=== PATIENT | male | born 1975 | race African-American/Black ===

== ENCOUNTER 2019-12-28 06:55 | Inpatient (IN) | payer MEDICAID ==
[~2019-12-28] VITALS: Ht 182.9 cm; Wt 108.4 kg
--- NOTE | 2019-12-28 | NUR ---
pm care given pt b/p redone and was 178/68 ,pt resting in no distress at this time
--- NOTE | 2019-12-28 07:30 | NUR ---
Patient to ER bed 3 to gown for evaluation. Side rails .
[2019-12-28 07:33] VITALS: BP_SYST 178
--- NOTE | 2019-12-28 07:35 | NUR ---
EKG done had given to
--- NOTE | 2019-12-28 07:40 | NUR ---
pt arrives from home w/ c/o chest burning sensation. Pt states that he has had a cough and fever. child monitor placed. Will continue to monitor
--- NOTE | 2019-12-28 07:45 | NUR ---
ER at bedside examining patient.
--- NOTE | 2019-12-28 07:50 | NUR ---
flu swab collected and sent to the lab
[2019-12-28] MEDS ORDERED: cloNIDine HCL 0.1 MG TABLET PO ONE (08:00)
[2019-12-28 08:19] LABS: BASOPHILS % (AUTO) 0.5 % (0.0-2.0); EOSINOPHILS # (AUTO) 0.1 K/uL (0.0-0.4); EOSINOPHILS % (AUTO) 0.9 % (0.0-4.0); HEMATOCRIT 42.8 % (36-54); HEMOGLOBIN 14.4 g/dL (14.0-18.0); LYMPHOCYTES # (AUTO) 1.4 K/uL (1.0-5.5); LYMPHOCYTES % (AUTO) 17.3 % (20.5-51.5); MEAN CORPUSCULAR HEMOGLOBIN 28 pg (27-31); MEAN CORPUSCULAR HGB CONC 34 % (32-36); MEAN CORPUSCULAR VOLUME 85 fL (79.0-98.0); MONOCYTES # (AUTO) 0.9 K/uL (0.0-1.0); MONOCYTES % (AUTO) 10.8 % (1.7-9.3); NEUTROPHILS # (AUTO) 5.7 K/uL (1.8-7.7); NEUTROPHILS % (AUTO) 70.5 % (40.0-70.0); PLATELET COUNT (AUTO) 232 K/uL (130-430); RED BLOOD CELL COUNT(AUTO) 5.06 MIL/uL (4.2-6.2); RED CELL DISTRIBUTION WIDTH 14.7 % (9.0-15.0); WHITE BLOOD COUNT (AUTO) 8.1 K/uL (4.8-10.8)
[2019-12-28 08:23] LABS: CALCIUM 8.7 mg/dL (8.4-11.0); CREATININE 1.23 mg/dL (0.55-1.30); POTASSIUM 3.7 mmol/L (3.5-5.1)
[2019-12-28 08:33] LABS: ALBUMIN 3.5 g/dL (3.4-4.8); TOTAL BILIRUBIN 1.4 mg/dL (0.0-1.0)
[2019-12-28] MEDS ORDERED: ASPIRIN 81 MG TAB.CHEW PO ONE (08:45)
--- NOTE | 2019-12-28 08:50 | NUR ---
# 118 gauge angiocath placed to RAC. Use of asceptic technique. Opsite placed over site. Blood return noted. Blood for lab drawn from site. Flushed with 10 cc of normal saline. No evidence of infiltration noted. Patient tolerated well. Addendum: 12/28/19 at 0857 by ALEXY 18g [facility]
[2019-12-28] MEDS ORDERED: VALS160T2 PO (09:17)
--- NOTE | 2019-12-28 09:17 | NUR ---
Medication reconciliation completed with information provided by the pt. Any prior medication reconciliation on file was reviewed and corrected.
[2019-12-28] MEDS ORDERED: ACETAMINOPHEN 500 MG TABLET PO ONE (09:30)
[2019-12-28] MEDS ORDERED: NITROGLYCERIN 1 INCH (GM) OINT. TP ONE (09:30)
--- NOTE | 2019-12-28 10:28 | NUR ---
Medicated the pt w/ Hydralizine 10mg IVP per MD order.
[2019-12-28] MEDS ORDERED: hydrALAZINE HCL 20 MG/ML VIAL IVP ONE (10:30)
--- NOTE | 2019-12-28 10:38 | NUR ---
ADMISSION NOTE Received patient from ER via nilda, received report from LILY ACOSTA. Patient admitted with diagnosis of CHEST PAIN. Patient oriented to hospital routine, call light, toileting and safety-patient verbalized understanding.
--- NOTE | 2019-12-28 10:39 | NUR ---
CONSULTATION PAGED REASON FOR CONSULTATION:CHEST PAIN POSITIVE TROPONIN WAS CONSULT CALLED?Y PERSON WHO WAS NOTIFIED:DAVID CONSULTING PHYSICIAN:SNOW GOETZ VICE PRESIDENT TAX SPECIALTY:CARDIO VICE PRESIDENT TAX PHONE NUMBER:[phone] ORDERING PHYSICIAN:CLARE BALBUENA
--- NOTE | 2019-12-28 10:39 | NUR ---
cardiac consult called: for Dr. Bedoya, regarding chest pain and positive troponin, ordered by Dr. Newton, spoke with Tejal.
[2019-12-28 10:44] VITALS: BP_SYST 143
--- NOTE | 2019-12-28 10:45 | NUR ---
Patient will be admitted to care of Dr. Newton. Admitted to tele unit. Will go to room 109-a. Belongings list completed. Complete and up to date summary report printed. SBAR report to be given at bedside with opportunity for questions. Bedside report given to Erik ACOSTA. IV is on the RAC 18g patent and infsuing well.
[2019-12-28] MEDS ORDERED: ENALAPRILAT DIHYDRATE 1.25 MG/ML VIAL IVP PRN (11:45)
--- NOTE | 2019-12-28 11:55 | NUR ---
RN rounds patient resting in bed, denies any pain, no signs of distress, continuing to monitor the patient, his family is at beside, bed in lowest position, two side rails up, call light is within reach, fall and aspiration precautions in place.
--- NOTE | 2019-12-28 12:49 | NUR ---
Called Cardiopulmonary regarding ECHO order, tech will be here shortly.
--- NOTE | 2019-12-28 13:00 | NUR ---
RN rounds patient resting in bed, awake, denies any pain, no signs of distress, he is eating lunch, his family is at bedside, patient bed in lowest position, two side rails up, call light within reach, fall and aspiration precautions in place, continuing to monitor.
--- NOTE | 2019-12-28 14:15 | NUR ---
RN rounds patient resting in bed, awake, denies any pain, no signs of distress, provided with water per his request, his family is at bedside, answered patient and family questions, patient bed in lowest position, two side rails up, call light within reach, fall and aspiration precautions in place, continuing to monitor.
[2019-12-28 15:19] VITALS: BP_SYST 146
--- NOTE | 2019-12-28 15:20 | NUR ---
RN rounds patient resting in bed, awake, denies pain, his family is at bedside, continuing to monitor, bed in lowest position, two side rails up, call light within reach, fall and aspiration precautions in place.
[2019-12-28] MEDS: guaiFENesin/DEXTROMETHORPHAN 10 ML UDC PO PRN (16:06)
--- NOTE | 2019-12-28 16:08 | NUR ---
RN rounds/Medication patient resting in bed, awake, denies pain, educated him on PRN cough medication uses and potential side effects, he verbalized understanding and tolerated well, no other needs at this time, continuing to monitor, bed in lowest position, two side rails up, call light within reach, fall and aspiration precautions in place.
--- NOTE | 2019-12-28 18:39 | NUR ---
Dr. Myles rounds updates given on the patient, Dr. Myles assessed the patient at bedside and answered his questions.
--- NOTE | 2019-12-28 18:40 | NUR ---
Closing note patient resting in bed, awake, denies pain, his family is at bedside, all needs met, will endorse report to NOC shift nurse, bed in lowest position, two side rails up, call light within reach, fall and aspiration precautions in place.
[2019-12-28 19:00] VITALS: BP_SYST 188
[2019-12-28 20:00] VITALS: BP_SYST 187
--- NOTE | 2019-12-28 20:00 | NUR ---
received pt in bed family at bedside ,v/s and assessment done b/p very high 189/110 medication given as ordered ,md notified of b/p status,pt told to calm down as family visiting and pt got a little excited,
[2019-12-28 20:17] LABS: CREATININE 1.34 mg/dL (0.55-1.30); POTASSIUM 3.9 mmol/L (3.5-5.1)
[2019-12-28] MEDS: cloNIDine HCL 0.1 MG TABLET PO PRN (20:44)
[2019-12-28] MEDS ORDERED: CARVEDILOL 6.25 MG TABLET (COREG) PO SCH (21:00)
[2019-12-29] VITALS: BP_SYST 154
--- NOTE | 2019-12-29 | NUR ---
family left ,pt appears to be less anxious at this time appear to be less anxious at this time
[2019-12-29] MEDS: guaiFENesin/DEXTROMETHORPHAN 10 ML UDC PO PRN ×3 (00:13→23:27)
[2019-12-29] MEDS: hydrALAZINE HCL 20 MG/ML VIAL IVP PRN ×2 (00:24→13:38)
[2019-12-29 04:00] VITALS: BP_SYST 150
--- NOTE | 2019-12-29 04:00 | NUR ---
pt resting in no distress .am care given made made comfortable
--- NOTE | 2019-12-29 05:44 | NUR ---
pt has a temp 102 will call and awaits his orders,b/p 150/90
[2019-12-29] MEDS ORDERED: HYDROCHLOROTHIAZIDE 25 MG TABLET (HCTZ) PO SCH (09:00)
[2019-12-29] MEDS ORDERED: ACETAMINOPHEN 325 MG TABLET ONE (09:11)
[2019-12-29 11:35] LABS: CALCIUM 8.7 mg/dL (8.4-11.0); CREATININE 1.25 mg/dL (0.55-1.30); POTASSIUM 3.8 mmol/L (3.5-5.1)
[2019-12-29 12:00] VITALS: BP_SYST 161
--- NOTE | 2019-12-29 12:00 | NUR ---
rounds pt eating lunch and mario well. no dizziness noted. call light within reached.
--- NOTE | 2019-12-29 14:00 | NUR ---
rounds awaiting for pt to void beofre infusing abx., no sob noted. call light withn reached.
[2019-12-29] MEDS ORDERED: FUROSEMIDE 40 MG TABLET PO ONE (14:15)
[2019-12-29 16:00] VITALS: BP_SYST 166
--- NOTE | 2019-12-29 16:53 | NUR ---
rounds urine was obtained and sent to the lab, abx was infused. no osb noted. ambulates to the br with min assists and mario well. resting comfortably.
[2019-12-29] MEDS: cloNIDine HCL 0.1 MG TABLET PO PRN (17:12)
[2019-12-29] MEDS: cefTRIAXone 1 GM IVPB PREMIX 50 ML IV SCH (17:14)
[2019-12-29 17:20] LABS: BARBITURATE, URINE NEGATIVE (NEG <=200); BENZODIAZEPINE, URINE NEGATIVE (NEG <=150); CANNABINOID, URINE NEGATIVE (NEG <=50); COCAINE, URINE NEGATIVE (NEG <=150); METHAMPHETAMINES SCREEN,URINE NEGATIVE (NEG <=500); OPIATE, URINE NEGATIVE (NEG <=100); PHENCYCLIDINE SCREEN,URINE NEGATIVE (NEG <=25); UR TRICYCLIC ANTIDEPRESSANTS NEGATIVE (NEG <=300); URINE AMPHETAMINE NEGATIVE (NEG <=500); URINE METHADONE NEGATIVE (NEG <=200); URINE OXYCODONE SCREEN NEGATIVE (NEG <=100); URINE PROPOXYPHENE SCREEN NEGATIVE (NEG <=300)
[2019-12-29 17:29] LABS: BILIRUBIN,URINE NEGATIVE (NEGATIVE); BLOOD, URINE NEGATIVE (NEGATIVE); CLARITY/URINE CLEAR (CLEAR); GLUCOSE,URINE NEGATIVE (NEGATIVE); KETONES,URINE NEGATIVE (NEGATIVE); LEUKOCYTE ESTERASE ,URINE NEGATIVE (NEGATIVE); NITRITE, URINE NEGATIVE (NEGATIVE); PROTEIN URINE NEGATIVE (NEGATIVE); UROBILINOGEN,URINE 0.2 (0.2-1.0)
[2019-12-29 17:48] LABS: COLOR,URINE STRAW (YELLOW)
--- NOTE | 2019-12-29 18:30 | NUR ---
closing notes denies pain. no sob noted. bed to the lowest position and side rails up and locked. call light within reached.
[2019-12-29 20:00] VITALS: BP_SYST 156
--- NOTE | 2019-12-29 20:00 | NUR ---
RECEIVED PT IN BED WITH LARGE GROUP OF FAMILY MEMBERS AT BEDSIDE,V/S AND ASSESSMENT DONE B/P 156/107 ,PT IN NO DISTRESS AT THIS TIME .FAMILY MEMBERS ADVISE TO KEEP PT STIMULATION TO A MINIMUM HIS B/P WAS HIGH,MEDICATION GIVEN FOR SAME .FAMILY MEMBERS AND REQUESTING TO SPEAK TO AND TO SEE DR MARI SINCE PREVIOUS SHIFT.CHARGE NURSE AND ARCHITECTURAL ASSOCIATE NOTIFIED OF THERE REQUEST, ARCHITECTURAL ASSOCIATE SEEN PT AND FAMILY.
[2019-12-29] MEDS: CARVEDILOL 6.25 MG TABLET (COREG) PO SCH (20:21)
[2019-12-29] MEDS: SPIRONOLACTONE 25 MG TABLET (ALDACTONE) PO SCH (20:22)
[2019-12-30] VITALS: BP_SYST 166
[2019-12-30 04:00] VITALS: BP_SYST 128
[2019-12-30] MEDS: cloNIDine HCL 0.1 MG TABLET PO PRN (06:01)
[2019-12-30] MEDS: guaiFENesin/DEXTROMETHORPHAN 10 ML UDC PO PRN (06:25)
[2019-12-30 07:36] LABS: ALBUMIN 3.6 g/dL (3.4-4.8); CALCIUM 9.6 mg/dL (8.4-11.0); CREATININE 1.38 mg/dL (0.55-1.30)
[2019-12-30 07:47] LABS: THYROID STIMULATING HORMONE 3.5 uIu/mL (0.36-3.74)
[2019-12-30 08:00] VITALS: BP_SYST 162
--- NOTE | 2019-12-30 08:00 | NUR ---
initial notes rec patient awake alert with family at bedside. resp easy and unlabored. no sob noted. bed to the lowest position and side rails up and locked. call light within reached. denies pain or headache.
[2019-12-30] MEDS ORDERED: FUROSEMIDE 40 MG TABLET PO SCH (09:00)
[2019-12-30] MEDS ORDERED: SPIR25TA PO (09:08)
[2019-12-30] MEDS ORDERED: FURO-149 PO (09:08)
[2019-12-30] MEDS ORDERED: LOSA50TA3 PO (09:08)
[2019-12-30] MEDS ORDERED: COR6.25 PO (09:08)
--- NOTE | 2019-12-30 10:00 | NUR ---
rounds seen by dr berman and dr vicente. pt will be d/c today. no sob noted.
[2019-12-30] MEDS: CARVEDILOL 6.25 MG TABLET (COREG) PO SCH (10:10)
[2019-12-30] MEDS: LOSARTAN POTASSIUM 50 MG TABLET (COZAAR) PO SCH ×2 (10:11→10:13)
[2019-12-30] MEDS: SPIRONOLACTONE 25 MG TABLET (ALDACTONE) PO SCH (10:19)
[2019-12-30] MEDS: cefTRIAXone 1 GM IVPB PREMIX 50 ML IV SCH (10:19)
[2019-12-30 12:42] VITALS: BP_SYST 150
--- NOTE | 2019-12-30 13:22 | NUR ---
Nutrition Education RD was consulted by pt's primary RN regarding pt's request for nutrition education (low-salt, heart-healthy) prior to D/C. RD provided handouts to pt's RN. Please refer to interdisciplinary teaching record for details.
--- NOTE | 2019-12-30 13:25 | NUR ---
closing notes exit care rendered to the patient. ivl and id band was removed. instructed re appt to see pmdElroy grigsby the diving instructor provided a heart healthy diet instructions for the patient. pt was instructed as well to comply with his medications. was escorted outside. no sob noted. patient is stable.
== END 2019-12-30 13:25 | disposition home or self-care (01) | DRG 190 ==
LOC: SED 06:55 → STU 10:06
PROVIDERS: ADMIT Internal Medicine Hospice and Palliative Medicine; ATTEND Internal Medicine Hospice and Palliative Medicine
DX: I21.A1 Myocardial infarction type 2 (principal); I50.21 Acute systolic (congestive) heart failure; I42.9 Cardiomyopathy, unspecified; E87.1 Hypo-osmolality and hyponatremia; I16.1 Hypertensive emergency; I11.0 Hypertensive heart disease with heart failure; B34.9 Viral infection, unspecified; Z91.14 Patient's other noncompliance with medication regimen; Z91.19 Patient's noncompliance with other medical treatment and regimen; Z79.899 Other long term (current) drug therapy
CPT/HCPCS: 36415; 71045; 80048; 80053; 80061; 80307; 81003; 83605; 83880; 84443-TC; 84484; 85025; 86710; 87040-TC; 87086; 93005; 93306; 99291; G0378; J0360; J0696

== ENCOUNTER 2020-05-31 21:01 | Emergency (ER) | payer SELFPAY ==
[~2020-05-31] VITALS: Ht 182.9 cm; Wt 103.4 kg
[~2020-05-31 21:01] MED LIST: COR6.25 PO; FURO-149 PO; LOSA50TA3 PO; SPIR25TA PO
[2020-05-31 21:45] VITALS: BP_SYST 234
--- NOTE | 2020-05-31 21:50 | NUR ---
Pt c/o to desktop publishing associate of congestion,pt stated to desktop publishing associate no chest pain only congestion, during triage pt states he feels chest discomfort/congestion during the last 4 days, pt insist it is not chest pain, Dr Giang notified ,EKG started, pt BP elevated , pt ambulatory, respirations even and unlabored, pt denies cough or congestion, skin pink and warm, will cont to monitor
--- NOTE | 2020-05-31 21:51 | NUR ---
Awaiting for bed availability , Dr Giang notified of pt's high blood pressure, requested a blood pressure medication but Dr Giang refused to give BP medication at this time since patient in waiting room,charge nurse awared,order received for aspirin PO, will cont to monitor .
--- NOTE | 2020-05-31 21:53 | NUR ---
Dr Giang assessing patient in the triage room
--- NOTE | 2020-05-31 21:54 | NUR ---
EKG given to Dr Giang, per Dr Giang will order labs.
--- NOTE | 2020-05-31 21:55 | NUR ---
Pt was taken to Radiology
[2020-05-31] MEDS ORDERED: ASPIRIN 325 MG TABLET PO ONE (22:00)
[2020-05-31 22:33] LABS: BASOPHILS # (AUTO) 0.1 K/uL (0.0-0.2); BASOPHILS % (AUTO) 0.6 % (0.0-2.0); EOSINOPHILS # (AUTO) 0.3 K/uL (0.0-0.4); EOSINOPHILS % (AUTO) 3.4 % (0.0-4.0); HEMATOCRIT 44.6 % (36-54); HEMOGLOBIN 14.7 g/dL (14.0-18.0); LYMPHOCYTES # (AUTO) 3.8 K/uL (1.0-5.5); LYMPHOCYTES % (AUTO) 39.1 % (20.5-51.5); MEAN CORPUSCULAR HEMOGLOBIN 29 pg (27-31); MEAN CORPUSCULAR HGB CONC 33 % (32-36); MEAN CORPUSCULAR VOLUME 87 fL (79.0-98.0); MONOCYTES # (AUTO) 0.7 K/uL (0.0-1.0); MONOCYTES % (AUTO) 6.7 % (1.7-9.3); NEUTROPHILS # (AUTO) 4.9 K/uL (1.8-7.7); NEUTROPHILS % (AUTO) 50.2 % (40.0-70.0); PLATELET COUNT (AUTO) 281 K/uL (130-430); RED BLOOD CELL COUNT(AUTO) 5.11 MIL/uL (4.2-6.2); RED CELL DISTRIBUTION WIDTH 13.6 % (9.0-15.0); WHITE BLOOD COUNT (AUTO) 9.7 K/uL (4.8-10.8)
[2020-05-31 22:50] LABS: CALCIUM 9.4 mg/dL (8.4-11.0); CREATININE 1.41 mg/dL (0.55-1.30); POTASSIUM 3.7 mmol/L (3.5-5.1)
[2020-05-31 22:56] LABS: ALBUMIN 3.7 g/dL (3.4-4.8); TOTAL BILIRUBIN 0.2 mg/dL (0.0-1.0)
[2020-05-31 23:06] LABS: PROTHROMBIN TIME 9.9 SECS (9.5-12.5)
--- NOTE | 2020-06-01 00:50 | NUR ---
PT COMPLAINS OF CHEST DISCOMFORT FOR 3 DAYS. PT STATES IT WOULD COME AND GO. PT CAME IN TODAY BECAUSE HE WANTED TO GET IT CHECKED. PT DENIES HEADACHE, BLURRY VISION, DIZZINESS.
--- NOTE | 2020-06-01 00:55 | NUR ---
ER Dr. HUMPHREYS at bedside examining patient.
[2020-06-01] MEDS ORDERED: NITROGLYCERIN 0.4 MG TAB.SUBL SL ONE (01:15)
--- NOTE | 2020-06-01 01:16 | NUR ---
Pt has been given 1st dose of Nitro for CP of 02/25. BP: 214/143 HR: 84
--- NOTE | 2020-06-01 01:21 | NUR ---
Pt has been given 2nd dose of Nitro for chest pain 12/28. BP: 198/131 HR:89
--- NOTE | 2020-06-01 01:26 | NUR ---
Pt has been given 3rd dose of Nitro for CP of 11/27. BP: 186/127 HR: 97%
--- NOTE | 2020-06-01 02:30 | NUR ---
Pt is resting in bed, no chest pain at this time. Will continue to monitor.
--- NOTE | 2020-06-01 03:52 | NUR ---
Pt is sitting in chair, no acute distress noted at this time. Will continue to monitor.
[2020-06-01] MEDS ORDERED: LOSA100T3 PO (04:28)
--- NOTE | 2020-06-01 04:29 | NUR ---
Patient will be admitted to care of A Paliwal. Admitted to telemetry unit. Will go to room once a room is available. Belongings list completed. Complete and up to date summary report printed. SBAR report to be given at bedside with opportunity for questions.
--- NOTE | 2020-06-01 04:29 | NUR ---
Medication reconciliation completed with information provided by patient. Any prior medication reconciliation on file was reviewed and corrected.
--- NOTE | 2020-06-01 07:24 | NUR ---
Assumed care of pt. Pt sleeping, no acute distress. Breathing even, unlabored.
--- NOTE | 2020-06-01 08:56 | NUR ---
Spoke with Garry Salinas regarding pt elevated BP, orders recieved.
[2020-06-01] MEDS ORDERED: LOSARTAN POTASSIUM 50 MG TABLET (COZAAR) PO ONE (09:00)
[2020-06-01] MEDS ORDERED: cloNIDine HCL 0.1 MG TABLET PO PRN (09:00)
[2020-06-01] MEDS ORDERED: hydrALAZINE HCL 20 MG/ML VIAL IVP ONE (09:15)
[2020-06-01] MEDS ORDERED: cloNIDine HCL 0.1 MG TABLET ONE (09:19)
--- NOTE | 2020-06-01 10:41 | NUR ---
Dr. Maurice Salinas at bedside for evaluation
[2020-06-01] MEDS ORDERED: CARVEDILOL 6.25 MG TABLET (COREG) ONE (11:06)
[2020-06-01] MEDS ORDERED: CARVEDILOL 25 MG TABLET (COREG) PO ONE (11:30)
--- NOTE | 2020-06-01 15:26 | NUR ---
Spoke with Dr. Maurice Salinas regarding pt BP 159/125. Orders recieved. Give amlodipine 5mg PO now and discharge home with RX to follow up with PCP and Dr. Maurice Salinas in 2 weeks.
[2020-06-01] MEDS ORDERED: amLODIPine BESYLATE 5 MG TABLET PO ONE (15:30)
[2020-06-01 15:37] VITALS: BP_SYST 159
[2020-06-01] MEDS ORDERED: AMLO5TAB4 PO (15:43)
[2020-06-01] MEDS ORDERED: amLODIPine BESYLATE 5 MG TABLET ONE (15:43)
[2020-06-01] MEDS ORDERED: CARV25TA55 PO (15:43)
--- NOTE | 2020-06-01 16:30 | NUR ---
Patient given written and verbal discharge instructions and verbalizes understanding. ER MD discussed with patient the results and treatment provided. Patient in stable condition. ID arm band removed. IV catheter removed intact and dressing applied, no active bleeding. Rx of NORVASC, AMLODIPINE phoned in to [facility] pharmacy by Maurice Salinas given. Patient educated on pain management and to follow up with PMD. Pain Scale 0/10. Opportunity for questions provided and answered. Medication side effect fact sheet provided. Pt will follow up with PCP and Dr. Maurice Salinas for HTN
[2020-06-01 16:31] VITALS: BP_SYST 168
[2020-06-01] MEDS ORDERED: CARVEDILOL 25 MG TABLET (COREG) PO SCH (21:00)
== END 2020-06-01 04:29 | disposition other institution (70) ==
LOC: SED 21:01 → UNDOADMIN 06-01 03:50 → STU 06-01 03:50 → SED 06-01 04:29 → STU 06-01 16:31
DX: R07.9 Chest pain, unspecified (principal); I10 Essential (primary) hypertension; N18.9 Chronic kidney disease, unspecified; R73.9 Hyperglycemia, unspecified
CPT/HCPCS: 36415; 71045; 80053; 83880; 84484; 85025; 85610; 85730; 93005 ×2; 96374; 99285; J0360; 85379

== ENCOUNTER 2021-04-18 11:04 | Emergency (ER) | payer SELFPAY ==
[~2021-04-18] VITALS: Ht 182.9 cm; Wt 101.6 kg
[~2021-04-18 11:04] MED LIST changes: +AMLO5TAB4 PO; +CARV25TA55 PO; -COR6.25 PO; -FURO-149 PO; -LOSA50TA3 PO; -SPIR25TA PO
[2021-04-18 11:22] VITALS: BP_SYST 214
[2021-04-18 12:08] LABS: BASOPHILS # (AUTO) 0.1 K/uL (0.0-0.2); BASOPHILS % (AUTO) 0.7 % (0.0-2.0); EOSINOPHILS # (AUTO) 0.1 K/uL (0.0-0.4); EOSINOPHILS % (AUTO) 0.7 % (0.0-4.0); HEMOGLOBIN 15.1 g/dL (14.0-18.0); LYMPHOCYTES # (AUTO) 1.9 K/uL (1.0-5.5); LYMPHOCYTES % (AUTO) 17.6 % (20.5-51.5); MEAN CORPUSCULAR HEMOGLOBIN 28 pg (27-31); MEAN CORPUSCULAR HGB CONC 33 % (32-36); MEAN CORPUSCULAR VOLUME 84 fL (79.0-98.0); MONOCYTES # (AUTO) 1.1 K/uL (0.0-1.0); NEUTROPHILS # (AUTO) 7.6 K/uL (1.8-7.7); PLATELET COUNT (AUTO) 291 K/uL (130-430); RED CELL DISTRIBUTION WIDTH 15.2 % (9.0-15.0); WHITE BLOOD COUNT (AUTO) 10.7 K/uL (4.8-10.8)
[2021-04-18 12:28] LABS: INR 1.1 (0.80-1.20); PROTHROMBIN TIME 11.5 SECS (9.5-12.5)
[2021-04-18 12:30] LABS: ALBUMIN 3.1 g/dL (3.4-4.8); CREATININE 1.45 mg/dL (0.55-1.30); TOTAL BILIRUBIN 2.1 mg/dL (0.0-1.0)
[2021-04-18] MEDS ORDERED: cloNIDine HCL 0.1 MG TABLET PO ONE (12:45)
[2021-04-18] MEDS ORDERED: NITROGLYCERIN 0.4 MG TAB.SUBL SL ONE (13:30)
[2021-04-18] MEDS ORDERED: FUROSEMIDE 40 MG/4 ML VIAL IVP ONE (13:30)
[2021-04-18] MEDS ORDERED: MORPHINE 4 MG INJ. 4 MG/ML VIAL IVP ONE (13:30)
[2021-04-18] MEDS ORDERED: IOHEXOL 350 mgI/mL, 150 ML INFUS..BTL IV ONE (14:32)
[2021-04-18 17:52] VITALS: BP_SYST 155
== END 2021-04-18 17:52 | disposition home or self-care (01) ==
LOC: SED 11:04
DX: I11.0 Hypertensive heart disease with heart failure (principal); I50.9 Heart failure, unspecified; Z79.899 Other long term (current) drug therapy
CPT/HCPCS: 36415; 71045; 71275; 76376; 80053; 83880; 84484; 85025; 85379; 85610; 85730; 93005; 96374; 99285; J1940; Q9967